=== PATIENT | female | born 1960 | race Hispanic/Latino ===

== ENCOUNTER 2019-04-10 17:15 | Emergency (ER) | payer MEDICAID ==
[2019-04-10] MEDS ORDERED: IBUPROFEN 800 MG TAB ONE (17:40)
== END 2019-04-10 18:31 | disposition home or self-care (01) ==
LOC: EDBD 17:15 → EDH 17:15
DX: S29.011A Strain of muscle and tendon of front wall of thorax, initial encounter (principal); F41.9 Anxiety disorder, unspecified; W18.39XA Other fall on same level, initial encounter; Y93.89 Activity, other specified; Y92.89 Other specified places as the place of occurrence of the external cause; Y99.8 Other external cause status
CPT/HCPCS: 71101